=== PATIENT | female | born 2000 | race Caucasian/White ===

== ENCOUNTER 2018-09-06 13:46 | Emergency (ER) | payer OTHER ==
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
== END 2018-09-06 14:58 | disposition home or self-care (01) ==
LOC: ER 13:46
DX: S16.1XXA Strain of muscle, fascia and tendon at neck level, initial encounter (principal); S80.02XA Contusion of left knee, initial encounter; S80.01XA Contusion of right knee, initial encounter; V48.6XXA Car passenger injured in noncollision transport accident in traffic accident, initial encounter; Z88.2 Allergy status to sulfonamides; E03.9 Hypothyroidism, unspecified
CPT/HCPCS: 99284

== ENCOUNTER 2018-11-01 07:56 | Emergency (ER) | payer OTHER ==
--- NOTE | 2018-11-01 08:17 | ER ---
Nurse's Notes [facility] Name: Tram Carter Age: 18 yrs Sex: Female : 2000 Arrival Date: 11/01/2018 Time: 07:59 Bed 14 Private MD: Diagnosis: Toothache Presentation: 11/01 08:03 Presenting complaint: Patient states: i started having toothache for 4 days now, [facility] 01/2018;. Transition of care: patient was not received from another setting of care. Onset of symptoms was November 01, 2018. Risk Assessment: Do you want to hurt yourself or someone else? Patient reports no desire to harm self or others. Initial Sepsis Screen: Does the patient meet any 2 criteria? No. Patient's initial sepsis screen is negative. Does the patient have a suspected source of infection? No. Patient's initial sepsis screen is negative. Care prior to arrival: None. 08:03 Method Of Arrival: Ambulatory 08:03 Acuity: GRAY 4 hj Triage Assessment: 08:06 General: Appears in no apparent distress. uncomfortable, Behavior is calm, cooperative, hj appropriate for age. Pain: Complains of pain in R U tooth. EENT: Reports pain. 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 - Social history:: Smoking status: Patient/guardian denies using tobacco, Patient/guardian denies using alcohol. - Ebola Screening: : Patient negative for fever greater than or equal to 101.5 degrees Fahrenheit, and additional compatible Ebola Virus Disease symptoms Patient denies exposure to infectious person Patient denies travel to an Ebola-affected area in the 21 days before illness onset. Screenin:06 Abuse screen: Denies threats or abuse. Denies injuries from another. Nutritional hj screening: No deficits noted. Tuberculosis screening: No symptoms or risk factors identified. Fall Risk None identified. Assessment: 08:19 General: Appears in no apparent distress. uncomfortable, Behavior is calm, cooperative, hj appropriate for age. Pain: Complains of pain in upper right first bicuspid (#5). Neuro: Level of Consciousness is awake, alert, obeys commands, Oriented to person, place, time, situation, Appropriate for age. Cardiovascular: Capillary refill < 3 seconds Patient's skin is warm and dry. Respiratory: Airway is patent Respiratory effort is even, unlabored, Respiratory pattern is regular, symmetrical. GI: No signs and/or symptoms were reported involving the gastrointestinal system. : No signs and/or symptoms were reported regarding the genitourinary system. EENT: Reports pain in upper right first bicuspid (#5). Derm: No signs and/or symptoms reported regarding the dermatologic system. Musculoskeletal: No signs and/or symptoms reported regarding the musculoskeletal system. Vital Signs: 08:07 BP 129 / 95; Pulse 105; Resp 18; Temp 97.9(O); Pulse Ox 100% on R/A; Weight 86.18 kg; hj Height 5 ft. 6 in. (167.64 cm); 08:07 Body Mass Index 30.67 (86.18 kg, 167.64 cm) hj ED Course: 07:59 Patient arrived in ED. mr 07:59 Tammy Qureshi [facility]C [facility] kb 07:59 Shelia Zelaya MD is Attending Physician. kb 08:03 Dariel Winston, YOSI is Primary Nurse. hj 08:04 Triage completed. hj 08:07 Arm band placed on right wrist. hj 08:07 Patient has correct armband on for positive identification. Bed in low position. Call hj light in reach. Side rails up X 1. Adult w/ patient. 08:21 No provider procedures requiring assistance completed. Patient did not have IV access hj during this emergency room visit. Administered Medications: 08:10 Drug: Tylenol 1000 mg Route: PO; hj 08:23 Follow up: Response: No adverse reaction; Pain is decreased hj Outcome: 08:17 Discharge ordered by . kb 08:22 Discharged to home ambulatory, with family. hj 08:22 Condition: stable 08:22 Discharge instructions given to patient, family, Instructed on discharge instructions, follow up and referral plans. Demonstrated understanding of instructions, follow-up care. 08:24 Patient left the ED. hj Signatures: Tammy Qureshi FNP-C FNP-Ckb Carie Barrios mr CatrachitoDariel arboleda, RN RN hj
--- NOTE | 2018-11-01 08:17 | EDPHYS ---
Physician Documentation [facility] Name: Tram Carter Age: 18 yrs Sex: Female : 2000 Arrival Date: 11/01/2018 Time: 07:59 Bed 14 Private MD: ED Physician Shelia Zelaya HPI: 11/01 08:12 This 18 yrs old Female presents to ER via Ambulatory with complaints of kb Toothache. 08:12 The patient presents with pain. The problem is located in the upper right first kb bicuspid (#5). Onset: The symptoms/episode began/occurred 4 day(s) ago. Duration: The symptoms are continuous. Modifying factors: The symptoms are alleviated by nothing, the symptoms are aggravated by cold fluids, hot fluids. Associated signs and symptoms: Pertinent positives: pain, Pertinent negatives: anorexia, chills, dysphagia, fever, inability to eat, nausea, redness in area, swelling, vomiting. Severity of symptoms: At their worst the symptoms were moderate, in the emergency department the symptoms are unchanged. The patient has not experienced similar symptoms in the past. The patient has not recently seen a physician. Pt reports her filling came out of her tooth a month ago, leaving the nerve exposed, and her dentist said she needed a root canal. States her OB said she cannot have any dental work until after delivery (pt is 37 weeks ). Pt states she started having pain 4 days ago and it kept her up last night. Pt has not taken anything for the pain.. 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 - Social history:: Smoking status: Patient/guardian denies using tobacco, Patient/guardian denies using alcohol. - Ebola Screening: : Patient negative for fever greater than or equal to 101.5 degrees Fahrenheit, and additional compatible Ebola Virus Disease symptoms Patient denies exposure to infectious person Patient denies travel to an Ebola-affected area in the 21 days before illness onset. ROS: 08:10 Constitutional: Negative for fever, chills, and weight loss, Cardiovascular: Negative kb for chest pain, palpitations, and edema, Respiratory: Negative for shortness of breath, cough, wheezing, and pleuritic chest pain, Abdomen/GI: Negative for abdominal pain, nausea, vomiting, diarrhea, and constipation, MS/Extremity: Negative for injury and deformity, Skin: Negative for injury, rash, and discoloration, Neuro: Negative for headache, weakness, numbness, tingling, and seizure. 08:10 ENT: Positive for dental pain. Exam: 08:11 Constitutional: This is a well developed, well nourished patient who is awake, alert, kb and in no acute distress. Head/Face: Normocephalic, atraumatic. Chest/axilla: Normal chest wall appearance and motion. Nontender with no deformity. No lesions are appreciated. Cardiovascular: Regular rate and rhythm with a normal S1 and S2. No gallops, murmurs, or rubs. Normal PMI, no JVD. No pulse deficits. Respiratory: Lungs have equal breath sounds bilaterally, clear to auscultation and percussion. No rales, rhonchi or wheezes noted. No increased work of breathing, no retractions or nasal flaring. Abdomen/GI: Soft, non-tender, with normal bowel sounds. No distension or tympany. No guarding or rebound. No evidence of tenderness throughout. Skin: Warm, dry with normal turgor. Normal color with no rashes, no lesions, and no evidence of cellulitis. MS/ Extremity: Pulses equal, no cyanosis. Neurovascular intact. Full, normal range of motion. Neuro: Awake and alert, GCS 15, oriented to person, place, time, and situation. Cranial nerves II-XII grossly intact. Motor strength 5/5 in all extremities. Sensory grossly intact. Cerebellar exam normal. Normal gait. 08:11 ENT: Dental exam: fractured teeth are noted, specifically the upper right first bicuspid (#5), pain, that is moderate, specifically in the upper right first bicuspid (#5). Vital Signs: 08:07 BP 129 / 95; Pulse 105; Resp 18; Temp 97.9(O); Pulse Ox 100% on R/A; Weight 86.18 kg; hj Height 5 ft. 6 in. (167.64 cm); 08:07 Body Mass Index 30.67 (86.18 kg, 167.64 cm) MDM: 07:59 Patient medically screened. kb 08:10 Data reviewed: vital signs, nurses notes. Data interpreted: Pulse oximetry: on room air kb is 100 %. Interpretation: normal. Counseling: I had a detailed discussion with the patient and/or guardian regarding: the historical points, exam findings, and any diagnostic results supporting the discharge/admit diagnosis, the need for outpatient follow up, a dentist, to return to the emergency department if symptoms worsen or persist or if there are any questions or concerns that arise at home. 08:15 ED course: Educated on use of tylenol for pain and need to follow up with dentist. No kb redness, swelling, or other symptoms to indicate infection. Administered Medications: 08:10 Drug: Tylenol 1000 mg Route: PO; hj 08:23 Follow up: Response: No adverse reaction; Pain is decreased Disposition: 13:00 Co-signature as Attending Physician, Shelia Zelaya MD. ma2 Disposition: 11/01/18 08:17 Discharged to Home. Impression: Toothache. - Condition is Stable. - Discharge Instructions: Dental Pain, [id number]. - Medication Reconciliation Form, Thank You Letter, Antibiotic Education, Prescription Opioid Use form. - Follow up: Emergency Department; When: As needed; Reason: Worsening of condition. Follow up: Private Physician; When: 2 - 3 days; Reason: Recheck today's complaints, Continuance of care, Re-evaluation by your physician. Signatures: Tammy Qureshi FNP-C FNP-Dariel Prieto RN RN hj Alzahri, Mohammad, MD MD ma2 Corrections: (The following items were deleted from the chart) 08:24 08:17 11/01/2018 08:17 Discharged to Home. Impression: Toothache. Condition is Stable. Forms are Medication Reconciliation Form, Thank You Letter, Antibiotic Education, Prescription Opioid Use. Follow up: Emergency Department; When: As needed; Reason: Worsening of condition. Follow up: Private Physician; When: 2 - 3 days; Reason: Recheck today's complaints, Continuance of care, Re-evaluation by your physician. kb
[2018-11-01] MEDS ORDERED: ACETAMINOPHEN 500 MG TAB ONE (08:27)
== END 2018-11-01 08:24 | disposition home or self-care (01) ==
LOC: ER 07:56
DX: O26.893 Other specified pregnancy related conditions, third trimester (principal); K08.89 Other specified disorders of teeth and supporting structures; Z3A.37 37 weeks gestation of pregnancy; Z88.2 Allergy status to sulfonamides; E03.9 Hypothyroidism, unspecified
CPT/HCPCS: 99283

== ENCOUNTER 2018-11-18 07:12 | Inpatient (IN) | payer OTHER ==
[2018-11-18] MEDS ORDERED: METHYLERGONOVINE 0.2MG/ML AMP IM PRN (08:11)
[2018-11-18] MEDS ORDERED: Ringers Lactate 1,000 ML IV PRN (08:11)
[2018-11-18] MEDS ORDERED: PROMETHAZINE 25 MG/ML VIAL IM PRN ×2 (08:11)
[2018-11-18] MEDS ORDERED: BUTORPHANOL 1 MG/ML INJ IV PRN (08:11)
[2018-11-18] MEDS ORDERED: CARBOPROST TROME 250 MCG/ML IM PRN (08:11)
[2018-11-18 08:38] LABS: Basophils % 0.6 % (0-1.3); Hematocrit 34.1 % (36.0-45.0); Lymphocytes % 24.6 % (15.3-44.8); MPV 8.5 fL (7.6-11.3); RBC Red Blood Cell Count 4.46 M/uL (3.86-4.86)
[2018-11-18] MEDS ORDERED: Ringers Lactate 1,000 ML IV SCH (09:00)
[2018-11-18] MEDS ORDERED: OXYTOCIN/LR 20 UNIT/1,000 ML BAG IV SCH ×2 (09:00→11:00)
[2018-11-18] MEDS ORDERED: FAMOTIDINE 20 MG/2 ML VIAL IV ONE (09:01)
[2018-11-18] MEDS ORDERED: METOCLOPRAMIDE 10 MG/2mL INJ ONE (09:01)
[2018-11-18] MEDS ORDERED: CEFAZOLIN/SWI 2gm 2 GM/20 ML SYR ONE (09:02)
[2018-11-18] MEDS ORDERED: NA CIT/CITRIC AC 30 ML ORAL UDC ONE (09:02)
[2018-11-18] MEDS ORDERED: OXYTOCIN 10 UNIT/ML ML IV ONE (09:30)
[2018-11-18] MEDS ORDERED: MORPHINE SULFATE/PF 1 MG/ML (10 ML AMP) ONE (09:30)
[2018-11-18] MEDS ORDERED: FENTANYL CITR 250 MCG/5 ML ONE (09:30)
[2018-11-18] MEDS ORDERED: KETOROLAC 30 MG/ML INJ IM PRN (10:10)
[2018-11-18] MEDS ORDERED: Oxycodone HCl/Acetaminophen 1 TAB TAB PO PRN (10:10)
[2018-11-18] MEDS ORDERED: ONDANSETRON 4 MG/2 ML VIAL IV PRN (10:10)
[2018-11-18] MEDS ORDERED: ONDANSETRON 4 MG (ODT) TAB PO PRN (10:10)
[2018-11-18] MEDS ORDERED: ACETAMINOPHEN 500 MG TAB PO PRN ×2 (10:10)
[2018-11-18] MEDS ORDERED: DIPHENHYDRAMINE 25 MG TAB/CAP PO PRN (10:10)
[2018-11-18] MEDS ORDERED: BISACODYL 10 MG RECTAL SUPP RECT PRN (10:10)
[2018-11-18] MEDS ORDERED: D5LR 1,000 ML with OXYTOCIN 20 UNIT IV SCH ×2 (11:00)
--- NOTE | 2018-11-18 11:56 | PREOPHP ---
Date of Admission: 11/18/2018 Carie Newman is a 18-year-old, primigravida, at 41 weeks and 1 day, scheduled for Cytotec this eveni ng and induction tomorrow morning, came in with spontaneous rupture of membranes, grossly bloody, eric ewhat port wine coloration, baby however looks quite good on the monitor. Cervix is pinpoint ___ not get my finger through but with exam there is a significant amount of port wine stain fluid. The uterus is fine in between contractions. She is bonilla every 4-5 minutes mildly. She is in no severe discomfort at this point. Baby's estimated weight was 8 pounds 4 ounces plus or minus 1 po und 4 ounces a week ago. I think that we probably have even a larger baby right now, discussion with the patient and mother about the situation, is not available at this time. We will get him involved in this, right now because of the extreme unfavorability of the cervix and the possibility f or more dramatic abruption as the labor progresses. I think a section would be the safest r oute to go. The patient's mother is in favor this . She will talk to her , will co nfer more, and then will decide what to do. Right now, we are not going to start Pitocin. Plan: We will monitor the patient closely. The section is just been done in the back. We w ill do a stat between clean up and prepare for the eventuality of following with . DAMIÁN/JANAE Voice ID: [id number]
--- NOTE | 2018-11-18 11:58 | PREOPHP ---
Date of Admission: 11/18/2018 Eduarda Wyatt is a 18-year-old, primigravida, 41 weeks 1 day, comes in with ruptured membranes. Port win e staining. Baby had good variability at first, now starting to lose variability. Uterus does relax in-between contractions. She is fingertip if that, the baby still floating. I think we have a cesar inal abruption and patient has a very unfavorable cervix. She was scheduled for Cytotec this evening with induction tomorrow. At this point, I have recommended section. Infection, blood loss , anesthetic complications, injury to bladder, bowel, ureter, postoperative complications, clots in l egs, and pneumonia discussed. The patient knows fully well this does not constitute all the possible problems that could occur during or following surgery. Heart and lungs are clear. Breasts without masses. Abdomen is term size. Baby was 8 pounds 4 ounces plus or minus 1 pound 4 ounces a week ago. Extremities are extremely swollen with edema but her vital signs are all stable. At this time, I d o not believe patient has preeclampsia although that could be occurring as we speak. Full discussion with the family. Stat clean-up has been ordered as section was just performed. Anesthesia has been notified. Pediatrics will be called. DAMIÁN/JANAE Voice ID: [id number]
[2018-11-18 12:22] VITALS: BMI 36.9
[2018-11-18] MEDS: KETOROLAC 30 MG/ML INJ IV PRN (14:09)
[2018-11-18] MEDS ORDERED: CEFAZOLIN/NS 1gm 1 GM/50 ML BAG IVPB ONE (17:26)
[2018-11-18] MEDS ORDERED: CEFAZOLIN/SWI 1gm 1 GM/10 ML SYR ONE (18:14)
[2018-11-18] MEDS ORDERED: CEFAZOLIN/SWI 1gm 1 GM/10 ML SYR IVP ONE (19:00)
[2018-11-19] MEDS: KETOROLAC 30 MG/ML INJ IV PRN (00:30)
[2018-11-19] MEDS: IBUPROFEN 200 MG TAB PO PRN ×2 (08:00→20:39)
[2018-11-19] MEDS ORDERED: MAGNESIUM HYDROXIDE 8% 30 ML PO PRN (10:10)
--- NOTE | 2018-11-19 10:17 | PN ---
Postoperatively, patient is doing well. Output is good. Vital signs are stable. She has had 1 or 2 blood pressures that were elevated, but her reflexes are normal; I do not think she has preeclampsia . We will discontinue Britton and IV, encourage ambulation, start p.o. intake. The patient has no pos t spinal block problems, although she did have some pruritus, which is improving. If all goes well, we will send her home tomorrow. Full dismissal instructions given, but we will go over those again t omorrow. Doing well at this point. DAMIÁN/JANAE Voice ID: [id number] Report ID: [id number]
--- NOTE | 2018-11-19 10:19 | PREOPHP ---
jDate of Admission: 11/18/2018 Carie Newman is a 18-year-old, primigravida, at 41 weeks and 1 day, scheduled for Cytotec this eveni ng and induction tomorrow morning, came in with spontaneous rupture of membranes, grossly bloody, eric ewhat port wine coloration, baby however looks quite good on the monitor. Cervix is pinpoint ___ not get my finger through but with exam there is a significant amount of port wine stain fluid. The uterus is fine in between contractions. She is bonilla every 4-5 minutes mildly. She is in no severe discomfort at this point. Baby's estimated weight was 8 pounds 4 ounces plus or minus 1 po und 4 ounces a week ago. I think that we probably have even a larger baby right now. Discussion wit h the patient and mother about the situation, is not available at this time. We will get him involved in this, right now because of the extreme unfavorability of the cervix and the possibility for more dramatic abruption as the labor progresses. I think a section would be the safest route to go. The patient's mother is in favor this . She will talk to her , will c onfer more, and then will decide what to do. Right now, we are not going to start Pitocin. Plan: We will monitor the patient closely. The section is just been done in the back. We w ill do a stat between clean up and prepare for the eventuality of following with . DAMIÁN/JANAE Voice ID: [id number]
--- NOTE | 2018-11-19 10:23 | OP ---
Surgeon: Blue Bee MD dEuarda Chadwick is a 18-year-old primigravida, 41 weeks 1 day, came in with rupture of membranes, port win e stain, suspicion for abruption. She was fingertip dilated. Baby was still floating in the pelvis, estimated to be 8.5 to 9.5 pounds. After discussion with the patient and family it was decided to p roceed with section. Infection, blood loss, anesthetic complications, injury to bladder, wolf wel, ureter, postoperative complications, clots in legs, pneumonia, patient discussed, patient knows fully well, does not constitute all the possible problems during or following surgery, has not eaten until since last night. College Archivist Surgeon: Dr. Contreras. Anesthestologist: Dr. Andrews for anesthesia. Actuarial Manager: Dr. Thompson for Pediatrics. Description Of Procedure: Patient was taken to surgery. Spinal block was performed, prepped and dra morillo, timeout was performed. Pfannenstiel incision was created. The incision was carried to the fasc ia. The fascia was incised and incision carried transversely, bilaterally. Anterior fascial plane w as developed by both blunt and sharp dissection. Lower fascial plane was also developed. Rectus mus cles were . Peritoneum entered bluntly. Low-transverse uterine incision created. Port win e stain was noted, nuchal cord loosely x1. A large male infant. Apgars 9 and 9 was delivered withou t difficulty, was not even engaged in the pelvis. Placenta removed manually. There appeared to have a marginal abruption. Uterus cleared of clot and blood and exteriorized. Cervical os dilated with r ing clamp. The uterus closed with a running locked stitch of 1 chromic followed by 2 [id number]-[id number] stitches along the suture line for complete hemostasis. Estimated blood loss during procedure 800 c c. Gutters cleared of clot and blood. Uterus was replaced into the peritoneal cavity. Inspection o f suture line showed no further bleeding. The muscle was closed with 0 Vicryl, 3 stitches interrupte d. Fascia closed with 1 PDS, running from either angle to the midline. Subcutaneous tissue closed w ith 2-0 plain. Absorbable sara and metal sara placed. Patient tolerated all procedures well. Transferred back to her room in good condition. Final Diagnoses: Intrauterine gestation, 41 weeks 1 day, placental abruption, marginal; primary cesa rean section; spinal block anesthesia. DAMIÁN/JANAE Voice ID: [id number] Report ID: [id number]
[2018-11-19] MEDS: Oxycodone HCl/Acetaminophen 1 TAB TAB PO PRN ×2 (14:25→19:39)
[2018-11-19 18:56] LABS: RPR (Rapid Plasma Reagin) NON-REACT (NON-REACT)
[2018-11-20 07:23] VITALS: BP 135/69; TEMP 97.4
[2018-11-20] MEDS: IBUPROFEN 200 MG TAB PO PRN (07:50)
[2018-11-21 04:05] LABS: HBsAG Nonreactive (Nonreactive)
--- NOTE | 2018-11-21 08:52 | DS ---
Date of Discharge: 11/20/2018 History And Hospital Course: A 18-year-old, primigravida, 41 weeks 1 day, came in with rupture of me mbranes; port wine stain, suspicion of marginal abruption. The patient was also noted to have a larg e baby with floating vertex. After observation and evaluation, it was decided to proceed with amrit an section. Infection, blood loss, anesthetic complications, injury to bladder, bowel, ureter, posto perative complications, clots in legs, and pneumonia discussed. The patient knows fully well this do es not constitute all of the possible problems that could occur during or following surgery. Spinal block anesthesia. Timeout was performed. A 9-pound, 14-ounce male was delivered. Apgars 9 a nd 9. Marginal abruption noted. Estimated blood loss at the time of surgery was 800 cc. Ancef prio r to and after surgery for prophylaxis. Rh positive, immune to Rubella, negative beta strep screen. Postoperatively, patient has remained afebrile, is ambulating and voiding, lochia is normal, will be dismissed later this morning to report back to my office next week for followup. To report any temp erature elevation of 100 degrees or greater, severe pain, heavy bleeding, or any other type of abnorm alities. Given tramadol for analgesia, although she may like to take Motrin instead. She has had he r Tdap immunization. She has no post spinal block problems. Final Diagnoses: Intrauterine gestation, 41 weeks 1 day; macrosomia; marginal placental abrupt ion. DAMIÁN/MODL Voice ID: [id number] Report ID: [id number]
== END 2018-11-20 09:00 | disposition home or self-care (01) | DRG 788 ==
LOC: L&D 07:12 → 2ND-WC 07:58
PROVIDERS: ADMIT Specialist; ATTEND Specialist
PROC: 3E0P7VZ Introduction of Hormone into Female Reproductive, Via Natural or Artificial Opening (ICD-10-PCS; 2018-11-18)
PROC: 10D00Z1 Extraction of Products of Conception, Low, Open Approach (ICD-10-PCS; principal; 2018-11-18 09:20)
DX: O45.93 Premature separation of placenta, unspecified, third trimester (principal); Z3A.41 41 weeks gestation of pregnancy; Z37.0 Single live birth; O69.81X0 Labor and delivery complicated by cord around neck, without compression, not applicable or unspecified; O36.63X0 Maternal care for excessive fetal growth, third trimester, not applicable or unspecified
CPT/HCPCS: 36415; 85014; 85025; 86592; 86850; 86900; 86901; 87340; 88307; J0690; J2210; J2590; J2765; J3010

== ENCOUNTER 2022-08-31 14:19 | Emergency (ER) | payer OTHER, SELFPAY ==
--- OUTSIDE RECORDS SUMMARY | 2022-08-31 14:27 | XMS REPORT | Continuity of Care Document ---
:2000 Author Organization [facility] t Address [address] [place] [address] [address] [place] [address] Care Team Providers Name Role Phone PCP, PATIENT DOES NOT HAVE A Primary Care Physician Unavaila JASON Edge Attending Clinician Unavailable Jason Bryant DO Attending Clinician Bala Downs NP Attending Clinician BALA DOWNS Attending Clinician Unavailable BALA DOWNS Admitting Clinician Unavailable Payers Payer Name Policy Type Policy Number Effective Date Expiration Date S olimpia [employer] PAID BY [id number] 2022 EMPLOYER - GENERIC 00:00:00 RAGHAV SHAHID [id number] 2017 HEALTH 00:00:00 Problems Condition Condition Condition Status Onset Resolution Last Treating Co mments Source Name Details Category Date Date Treatment Clinician Date General General Disease Active 2016-04 Univers counseling counseling 0-18 [place] y of [place] 00 Medical contracept contracept Br anch nolan nolan management management Overweight Overweight Disease Active 2016-04 U nivers (BMI (BMI 0-18 ity of 25.0-29.9) 25.0-29.9[place] 00 [facility] Other Other Disease Active 2016-04 Univers specified specified 0-18 ity of hypothyroi hypothyroi [place] dis[place] dism 00 Medical Branch Allergies, Adverse Reactions, Alerts Allergy Allergy Status Severity Reaction(s) Onset Inactive Treating Comm ents Source Name Type Date Date Clinician NO KNOWN Drug Active Univers ALLERGIE Class ity of S [facility] Social History Social Habit Start Date Stop Date Quantity Comments Source Exposure to 2022-05-23 2022-06-02 Not sure [facility] SARS-CoV-2 00:00:00 11:27:00 [facility] (event) Branch Alcohol intake 2022-06-02 2022-06-02 Current University of 00:00:00 00:00:00 non-drinker of [facility] alcohol (finding) Merna Tobacco use and 2017-02-13 2017-02-13 Smokeless tobacco Un iversity of exposure 00:00:00 00:00:00 non-user [facility] Sex Ass[birth year] At [birth year] Universit y of 00:00:00 00:00:00 [facility] Smoking Status Start Date Stop Date Source Never smoked tobacco [facility] Medications Ordered Filled Start Stop Current Ordering Indication Dosage Frequency Signature Comments Components Source Medication Medication Date Date Medication? Clinician (SIG) Name Name ibuprofen Yes [id number] 800mg Take 1 Univers 800 mg 3-29 [id number] tablet by ity of tablet 00:00: mouth 4 [place] 00 (four) Medical [facility] daily as needed for Pain (scale 1-3) or Pain (scale 4-6). ibuprofen Yes [id number] 800mg Take 1 Univers 800 mg 3-29 [id number] tablet by ity of tablet 00:00: mouth 4 [place] 00 (four) Medical [facility] daily as needed for Pain (scale 1-3) or Pain (scale 4-6). levothyroxi 2016-04 Yes 88ug Take 88 Uni vers ne 88 mcg 0-18 mcg by ity of tablet 19:51: mouth [place] 38 every Medical morning. Branch levothyroxi 2016-04 Yes 88ug Take 88 Uni vers ne 88 mcg 0-18 mcg by ity of tablet 14:51: mouth [place] 38 every Medical morning. Branch norgestimat 2016-04 Yes [id number] 1{tbl} Take 1 Univers e-ethinyl 0-18 tablet by ity o f estradiol 00:00: mouth [place] (ORTHO 00 daily. Medical TRI-CYCLEN Branch , 28,) 0.18/0.215/ 0.25 mg-25 mcg tablet norgestimat 2016-04 Yes [id number] 1{tbl} Take 1 Univers e-ethinyl 0-18 tablet by ity o f estradiol 00:00: mouth [place] (ORTHO 00 daily. Medical TRI-CYCLEN Branch LO, 28,) 0.18/0.215/ 0.25 mg-25 mcg tablet Immunizations Ordered Filled Immunization Date Status Comments [facility] e Immunization Name Name TD Pres-Free 2022-06-02 Completed University o f 00:00:00 [facility] TDAP (ADACEL) 2013-02-13 Completed University of VACCINE 00:00:00 [facility] TDAP (ADACEL) 2013-02-13 Completed University of VACCINE 00:00:00 [facility] Vital Signs Vital Name Observation Time Observation Value Comments Source Systolic blood 2022-06-02 17:29:00 126 mm[Hg] Univer sity of pressure [facility] Diastolic blood 2022-06-02 17:29:00 85 mm[Hg] Unive rsity of [facility] Heart rate 2022-06-02 17:29:00 79 /[facility] 2022-06-02 17:29:00 37.11 Aminata [facility] Respiratory rate 2022-06-02 17:29:00 16 /min [facility] Body height 2022-06-02 17:29:00 175.3 cm [facility] Body weight 2022-06-02 17:29:00 90.719 kg [facility] BMI 2022-06-02 17:29:00 29.53 kg/m2 [facility] Oxygen saturation in 2022-06-02 17:29:00 99 /min University of Arterial blood by [facility] Pulse oximetry Branch Systolic blood 2020-07-25 20:51:00 142 mm[Hg] Univer sity of pressure [facility] Diastolic blood 2020-07-25 20:51:00 91 mm[Hg] Unive rsity of pressure [facility] Heart rate 2020-07-25 20:51:00 80 /min Universi ty [facility] Respiratory rate 2020-07-25 20:51:00 14 /min [facility] Oxygen saturation in 2020-07-25 20:51:00 98 /min University of Arterial blood by [facility] Pulse oximetry Branch Body temperature 2020-07-25 18:25:[address] 36.[address] [facility] Body weight 2020-07-25 18:25:00 89.359 kg Universi [facility] Procedures Procedure Date / Time Performing Clinician Source Performed CONSENT/REFUSAL FOR 2022-06-02 17:11:35 Doctor Unassigned, No Un [facility] DIAGNOSIS AND TREATMENT Name Medical Branch XR ANKLE <3 VW RIGHT 2020-07-25 19:25:37 Bala Downser [facility] POCT TEST 2020-07-25 19:07:[address] [facility] ED SPLINT APPLICATION 2020-07-25 18:19:00 Bala Downs [facility] Encounters Start End Encounter Admission Attending Care Care Encounter Source Date/Time Date/Time Type Type Clinicians Facility Department ID 2022-06-02 2022-06-02 [facility] [id number] Univers 11:31:00 12:21:[address] [facility] 2022-06-02 2022-06-02 [facility] [id number] Univers 11:31:00 12:21:00 Jason KINNEY [id number] i [facility] [id number] [facility] [id number] [address] 2020-07-25 2020-07-25 Emergency [facility] [id number] Univers 13:26:00 15:55:00 Bala Kinney [id number] ity [facility] [id number] [facility] [id number] [address] 2020-07-25 2020-07-25 Emergency X [facility] ERT [id number] Univers 13:26:00 15:55:00 [facility] Results Test Description Test Time Test Comments Results Result Sour e Comments XR ANKLE <3 VW 2020-07-25 No acute bony Univer sity of RIGHT 20:31:09 abnormality. [place] [facility] Report Dictated by Resident: Gillian Singh MD., have reviewed this study and agree with the abovereport.EXAM: XR ANKLE <3 VW RIGHT HISTORY: pain COMPARISON: None. FINDINGS: Radiographs of the right ankle demonstrate no acute fracture ordislocation. The joint spaces are maintained. No soft tissue abnormality isseen. [facility], Radiant Results Inft User - 07/25/2020 3:32 PM CDTEXAM: XR ANKLE <3 VW RIGHTHISTORY: pain COMPARISON: None.FINDINGS:Rad iographs of the right ankle demonstrate no acute fracture ordislocation. The joint spaces are maintained. No soft tissue abnormality isseen. IMPRESSIONNo acute bony abnormality.Preli minary Report Dictated by Resident: Gillian Rodriguez MD., have reviewed this study and agree with the abovereport. POCT TEST 2020-07-25 19:07:00 Test Item Value Reference Range Interpretation Comme nts POCT PREG (test code = 1605) negative On board controls acceptable with C Line (test code = 3574) present POCT PREG LOT # (test code = 3575) [id number] POCT PREG TEST DATE (test code = 3576) 2022-03-28 Lab Interpretation (test code = 34200-7) Normal [facility]
[2022-08-31] MEDS ORDERED: NA CHLORIDE 0.9% 1,000 ML ONE (14:42)
[2022-08-31 14:55] LABS: Hematocrit 38.3 % (36.0-45.0); MCV 79.9 fL (80-100); MPV 8.1 fL (7.6-11.3); RBC Red Blood Cell Count 4.79 M/uL (3.86-4.86)
[2022-08-31 15:15] LABS: BUN Blood Urea Nitrogen 9 mg/dL (7-18); Bicarbonate 27 mEq/L (21-32); Glomerular Filtration Rate 127 ml/min (=/>90); Glucose Level 85 mg/dL (74-106); Potassium 3.8 mEq/L (3.5-5.1); Sodium Level 136 mEq/L (136-145)
[2022-08-31 15:16] LABS: HCG, Quantitative < 1 mIU/mL (1-3)
[2022-08-31 15:31] LABS: Specific Gravity 1.015 (1.005-1.030); Urine Bilirubin NEGATIVE (Negative); Urine Blood Negative (Negative); Urine Clarity Clear (Clear); Urine Color Light-Yellow (Yellow); Urine Glucose NEGATIVE (Negative); Urine Protein NEGATIVE (Negative); Urine Urobilinogen Normal (Normal)
[2022-08-31 15:32] LABS: Specific Gravity 1.015 (1.005-1.030)
--- NOTE | 2022-08-31 15:46 | EDPHYS ---
Physician Documentation [facility] Name: Tram Carter Age: 22 yrs Sex: Female : 2000 Arrival Date: 08/31/2022 Time: 14:19 Bed 10 Private MD: LASHA Physician David Kim HPI: 08/31 15:43 This 22 yrs old Female presents to ER via Ambulatory with complaints of eveline Spotting.Cramping possible . 15:43 The patient presents with vaginal bleeding that is spotting. Onset: The eveline symptoms/episode began/occurred 3 day(s) ago. Modifying factors: The symptoms are alleviated by nothing, the symptoms are aggravated by nothing. Associated signs and symptoms: The patient has no apparent associated signs or symptoms. Severity of symptoms: At their worst the symptoms were mild, in the emergency department the symptoms are unchanged. The patient is sexually active, reportedly has a single partner. The patient has not experienced similar symptoms in the past. 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 - Social history:: Smoking status: Patient reports the use of cigarette tobacco products, 1 pack q 2-3 days. - Family history:: not pertinent. ROS: 15:43 Constitutional: Negative for fever, chills, and weight loss, Eyes: Negative for injury, eveline pain, redness, and discharge, ENT: Negative for injury, pain, and discharge, Neck: Negative for injury, pain, and swelling, Cardiovascular: Negative for chest pain, palpitations, and edema, Respiratory: Negative for shortness of breath, cough, wheezing, and pleuritic chest pain, Abdomen/GI: Negative for abdominal pain, nausea, vomiting, diarrhea, and constipation, Back: Negative for injury and pain, MS/Extremity: Negative for injury and deformity, Skin: Negative for injury, rash, and discoloration, Neuro: Negative for headache, weakness, numbness, tingling, and seizure, Psych: Negative for depression, anxiety, suicide ideation, homicidal ideation, and hallucinations, Allergy/Immunology: Negative for hives, rash, and allergies, Endocrine: Negative for neck swelling, polydipsia, polyuria, polyphagia, and marked weight changes. 15:43 : Positive for pelvic pain, vaginal bleeding. Exam: 15:43 Constitutional: This is a well developed, well nourished patient who is awake, alert, eveline and in no acute distress. Head/Face: Normocephalic, atraumatic. Eyes: Pupils equal round and reactive to light, extra-ocular motions intact. Lids and lashes normal. Conjunctiva and sclera are non-icteric and not injected. Cornea within normal limits. Periorbital areas with no swelling, redness, or edema. ENT: Nares patent. No nasal discharge, no septal abnormalities noted. Tympanic membranes are normal and external auditory canals are clear. Oropharynx with no redness, swelling, or masses, exudates, or evidence of obstruction, uvula midline. Mucous membranes moist. Neck: Trachea midline, no thyromegaly or masses palpated, and no cervical lymphadenopathy. Supple, full range of motion without nuchal rigidity, or vertebral point tenderness. No Meningismus. Chest/axilla: Normal chest wall appearance and motion. Nontender with no deformity. No lesions are appreciated. Cardiovascular: Regular rate and rhythm with a normal S1 and S2. No gallops, murmurs, or rubs. Normal PMI, no JVD. No pulse deficits. Respiratory: Lungs have equal breath sounds bilaterally, clear to auscultation and percussion. No rales, rhonchi or wheezes noted. No increased work of breathing, no retractions or nasal flaring. Abdomen/GI: Soft, non-tender, with normal bowel sounds. No distension or tympany. No guarding or rebound. No evidence of tenderness throughout. Back: No spinal tenderness. No costovertebral tenderness. Full range of motion. Skin: Warm, dry with normal turgor. Normal color with no rashes, no lesions, and no evidence of cellulitis. MS/ Extremity: Pulses equal, no cyanosis. Neurovascular intact. Full, normal range of motion. Neuro: Awake and alert, GCS 15, oriented to person, place, time, and situation. Cranial nerves II-XII grossly intact. Motor strength 5/5 in all extremities. Sensory grossly intact. Cerebellar exam normal. Normal gait. Psych: Awake, alert, with orientation to person, place and time. Behavior, mood, and affect are within normal limits. Vital Signs: 14:35 BP 116 / 89; Pulse 78; Resp 16; Temp 97.6(O); Pulse Ox 100% on R/A; Weight 102.06 kg; vg1 Height 5 ft. 9 in. ; Pain 0/10; 14:35 Body Mass Index 33.23 (102.06 kg, 175.26 cm) vg1 14:35 Pain Scale: Adult vg1 MDM: 14:23 Patient medically screened. [facility] 15:48 Differential diagnosis: dysmenorrhea, endometriosis, ovarian cyst, urinary tract eveline infection. Data reviewed: vital signs, nurses notes, lab test result(s), radiologic studies, ultrasound. Consideration of Admission/Observation Escalation of care including admission/observation considered. I considered the following discharge prescriptions or medication management in the emergency department Medications were administered in the Emergency Department. See MAR. Test considered but Not performed: CT: no ct abd pelvis. Care significantly affected by the following chronic conditions: hypothyroid. Counseling: I had a detailed discussion with the patient and/or guardian regarding: the historical points, exam findings, and any diagnostic results supporting the discharge/admit diagnosis, lab results, radiology results, the need for outpatient follow up, for definitive care, an OB/Gyne specialist. 08/31 14:23 Order name: Abo/rh Typing [facility] 08/31 14:23 Order name: Basic Metabolic Panel; Complete Time: 15:34 [facility] 08/31 14:23 Order name: CBC with Diff; Complete Time: 15:34 [facility] 08/31 14:23 Order name: Test, Urine; Complete Time: 15:34 [facility] 08/31 14:23 Order name: Quantitative Hcg; Complete Time: 15:34 [facility] 08/31 14:23 Order name: Urinalysis w/ reflexes; Complete Time: 15:34 [facility] 08/31 14:23 Order name: US Transvaginal Ob [facility] 08/31 14:23 Order name: IV Saline Lock; Complete Time: 14:45 [facility] 08/31 14:23 Order name: Labs collected and sent; Complete Time: 14:45 [facility] 08/31 14:23 Order name: NPO; Complete Time: 14:45 eveline Administered Medications: 14:45 Drug: NS 0.9% IV 1000 ml Route: IV; Rate: 1 bolus; Site: right antecubital; kc6 15:57 Follow up: Response: No adverse reaction; IV Status: Completed infusion; IV Intake: kc6 1000ml Disposition Summary: 08/31/22 15:46 Discharge Ordered Location: Home eveline Problem: new eveline Symptoms: have improved eveline Condition: Stable eveline Diagnosis - Other specified abnormal uterine and vaginal bleeding eveline - Dysmenorrhea, unspecified eveline - Other ovarian cysts eveline Followup: eveline - With: Private Physician - When: 2 - 3 days - Reason: Recheck today's complaints, Continuance of care, Re-evaluation by your physician Followup: eveline - With: Dulce Zamorano MD - When: 2 - 3 days - Reason: Recheck today's complaints, Re-evaluation by your physician Discharge Instructions: - Discharge Summary Sheet eveline - Abnormal Uterine Bleeding eveline - Dysmenorrhea eveline - Abnormal Uterine Bleeding, [id number] eveline - Dysmenorrhea, [id number] eveline Forms: - Medication Reconciliation Form eveline - Thank You Letter eveline - Antibiotic Education eveline - Prescription Opioid Use eveline Prescriptions: - Ibuprofen 600 mg Oral Tablet - take 1 tablet by ORAL route every 6 hours As needed take with food; 20 tablet; [facility] Refills: 0, Product Selection Permitted Signatures: Dispatcher [employer] David Xiao MD MD cha Garcia, Victoria RN RN vg1 Esmer Ignacio RN RN kc6
--- NOTE | 2022-08-31 15:46 | ER ---
Nurse's Notes [facility] Name: Tram Carter Age: 22 yrs Sex: Female : 2000 Arrival Date: 08/31/2022 Time: 14:19 Bed 10 Private MD: Diagnosis: Other specified abnormal uterine and vaginal bleeding;Dysmenorrhea, unspecified;Other ovarian cysts Presentation: 08/31 14:35 Chief complaint: Patient states: LMP May 2022, has not seen on OB, stated having vg1 back and pelvic pressure. UPT taken at home with positive results. Stated was spotting a week ago. Coronavirus screen: Vaccine status: Patient reports being unvaccinated. Ebola Screen: Patient negative for fever greater than or equal to 101.5 degrees Fahrenheit, and additional compatible Ebola Virus Disease symptoms Patient denies exposure to infectious person. Patient denies travel to an Ebola-affected area in the 21 days before illness onset. Initial Sepsis Screen: Does the patient meet any 2 criteria? No. Patient's initial sepsis screen is negative. Does the patient have a suspected source of infection? No. Patient's initial sepsis screen is negative. Risk Assessment: Do you want to hurt yourself or someone else? Patient reports no desire to harm self or others. Onset of symptoms was August 24, 2022. 14:35 Method Of Arrival: Ambulatory vg1 14:35 Acuity: GRAY 3 vg1 Triage Assessment: 14:37 General: Appears comfortable, Behavior is calm, cooperative. Pain: Complains of pain in vg1 back and pelvis Quality of pain is described as pressure. : Reports vaginal bleeding that is spotty. 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 - Social history:: Smoking status: Patient reports the use of cigarette tobacco products, 1 pack q 2-3 days. - Family history:: not pertinent. Screenin:15 [facility] ED Fall Risk Assessment (Adult) History of falling in the last 3 months, kc6 including since admission No falls in past 3 months (0 pts) Confusion or Disorientation No (0 pts) Intoxicated or Sedated No (0 pts) Impaired Gait No (0 pts) Mobility Assist Device Used No (0 pt) Altered Elimination No (0 pt) Score/Fall Risk Level 0 - 2 = Low Risk Oriented to surroundings, Maintained a safe environment, Educated pt \T\ family on fall prevention, incl call for assistance when getting out of bed, Assessed \T\ reinforced patient's understanding of fall precautions, Hourly rounding (assess needs \T\ fall precautionary measures) done. Abuse screen: Denies threats or abuse. Denies injuries from another. Nutritional screening: No deficits noted. Tuberculosis screening: No symptoms or risk factors identified. Assessment: 14:30 General: Appears in no apparent distress. comfortable, Behavior is calm, cooperative, kc6 appropriate for age. Pain: Denies pain. : Reports vaginal bleeding that is spotty. Vital Signs: 14:35 BP 116 / 89; Pulse 78; Resp 16; Temp 97.6(O); Pulse Ox 100% on R/A; Weight 102.06 kg; vg1 Height 5 ft. 9 in. ; Pain 0/10; 14:35 Body Mass Index 33.23 (102.06 kg, 175.26 cm) vg1 14:35 Pain Scale: Adult vg1 ED Course: 14:15 Inserted saline lock: 20 gauge in right antecubital area, using aseptic technique. kc6 Blood collected. 14:21 Patient arrived in ED. ts1 14:22 David Kim MD is Attending Physician. eveline 14:27 Esmer Ignacio, RN is Primary Nurse. kc6 14:37 Triage completed. vg1 14:37 Arm band placed on. vg1 14:45 Patient has correct armband on for positive identification. Bed in low position. Call kc6 light in reach. Side rails up X2. Adult w/ patient. 15:10 US Transvaginal Ob In Process Unspecified. EDMS 15:45 Dulce Zamorano MD is Referral Physician. eveline 15:56 No provider procedures requiring assistance completed. IV discontinued, intact, kc6 bleeding controlled, No redness/swelling at site. Pressure dressing applied. Administered Medications: 14:45 Drug: NS 0.9% IV 1000 ml Route: IV; Rate: 1 bolus; Site: right antecubital; kc6 15:57 Follow up: Response: No adverse reaction; IV Status: Completed infusion; IV Intake: kc6 1000ml Medication: 15:57 VIS not applicable for this client. kc6 Intake: 15:57 IV: 1000ml; Total: 1000ml. kc6 Outcome: 15:46 Discharge ordered by MD. mosquera 15:56 Discharged to home ambulatory, with family. kc6 15:56 Condition: improved 15:56 Discharge instructions given to patient, Instructed on discharge instructions, follow up and referral plans. medication usage, Demonstrated understanding of instructions, follow-up care, medications, Prescriptions given X 1. 15:57 Patient left the ED. kc6 Signatures: Dispatcher [employer] David Xiao MD MD cha Garcia, Victoria, RN RN vg1 Esmer Ignacio, RN RN kc6 Dalila Christopher PAS PAS ts1
--- NOTE | 2022-08-31 15:59 | RAD REPORT ---
EXAM DESCRIPTION: US - Transvaginal OB - 08/31/2022 3:18 pm CLINICAL HISTORY: ABD CRAMPING, COMPARISON: OB Complete dated 11/10/2018 FINDINGS: The uterus measures 7.7 x 4.1 x 5.8 cm. The endometrial echo complex measures 10 mm. No IUP identified. The right ovary measures 1.6 x 2.6 x 1.8 cm with volume of 3.7 cc. The left ovary measures 2.4 x 2.1 x 2.8 cm with volume of 7.2 cc. Corpus luteal cyst in the left ovary. Bilateral ovarian blood flow pr esent. IMPRESSION: No IUP identified. Therefore, cannot exclude early normal , early ectopic, or f darline first trimester . Bilateral ovarian blood flow.
[2022-08-31 16:10] VITALS: BP 116/89; TEMP 97.6; O2SAT 100
== END 2022-08-31 15:57 | disposition home or self-care (01) ==
LOC: ER 14:19
DX: N94.6 Dysmenorrhea, unspecified (principal); N83.299 Other ovarian cyst, unspecified side
CPT/HCPCS: 36415; 76817; 80048; 81003; 81025; 84702; 85025; 86900; 86901; 96360; 99284; J7030